=== PATIENT | female | born 1955 | race Caucasian/White ===

== ENCOUNTER 2019-03-02 20:52 | Emergency (ER) | payer OTHER ==
[~2019-03-02] VITALS: Ht 154.9 cm; Wt 71.2 kg
[2019-03-02 21:29] VITALS: Ht 154.9 cm; Wt 71.2 kg
[2019-03-02 22:31] VITALS: BP 120/81
== END 2019-03-02 22:31 | disposition home or self-care (01) ==
LOC: ED 20:52
DX: J40 Bronchitis, not specified as acute or chronic (principal); E11.9 Type 2 diabetes mellitus without complications
CPT/HCPCS: 82962

== ENCOUNTER 2019-10-30 22:08 | Emergency (ER) | payer OTHER ==
[~2019-10-30] VITALS: Ht 154.9 cm; Wt 72.1 kg
[2019-10-30 22:14] VITALS: Ht 154.9 cm; Wt 72.1 kg
[2019-10-30 23:32] VITALS: BP 124/75
== END 2019-10-30 23:32 | disposition home or self-care (01) ==
LOC: ED 22:08
DX: L02.214 Cutaneous abscess of groin (principal); E11.9 Type 2 diabetes mellitus without complications
CPT/HCPCS: 82962; J0696

== ENCOUNTER 2019-11-02 07:10 | Emergency (ER) | payer OTHER ==
[~2019-11-02] VITALS: Ht 160 cm; Wt 72.6 kg
[2019-11-02 07:14] VITALS: BP 119/43
== END 2019-11-02 08:00 | disposition home or self-care (01) ==
LOC: ED 07:10
DX: L02.416 Cutaneous abscess of left lower limb (principal); E11.9 Type 2 diabetes mellitus without complications; M06.9 Rheumatoid arthritis, unspecified; Z04.89 Encounter for examination and observation for other specified reasons